=== PATIENT | male | born 1960 | race Caucasian/White ===

== ENCOUNTER → 2017-06-28 16:04 | Outpatient (CLI) | payer MEDICARE, SELFPAY ==
--- NOTE | 2017-06-28 16:09 | XR_ITS ---
XR knee LT 3V HISTORY: Knee pain ITS.REASON: LEFT LEG PAIN ORDERING PHYSICIAN: Koby Serrano MD PATIENT AGE: 56 years COMPARISON: FINDINGS: No fracture or dislocation. No lytic or blastic change. Normal mineralization. No significant arthritic changes evident. No other significant findings IMPRESSION: Negative Knee
== END ==
PROVIDERS: PCP Family Medicine; Visit Provider Family Medicine
DX: M79.605 Pain in left leg (principal)
CPT/HCPCS: 73562

== ENCOUNTER → 2017-07-27 09:25 | Outpatient (POV) | payer MEDICARE, SELFPAY | PROVIDERS: PCP Family Medicine; Visit Provider Otolaryngology | DX: Z00.00 Encounter for general adult medical examination without abnormal findings (principal) ==

== ENCOUNTER 2018-01-23 16:31 | Inpatient (IN) ==
--- NOTE | 2018-01-23 18:06 | Emergency Department Note ---
ED Disposition Clinical Impression: Left leg pain, Elevated d-dimer Disposition: Still a Patient Condition on Discharge: Fair - Critical Care Critical Care Time: No Attestation: On 01/23/18, the high probability of a clinically significant, sudden or life threatening deterioration of the following system(s) required my full and direct attention, intervention and personal management. The time I documented below is in addition to time spent performing reported procedures but includes the following listed in this critical care notation. Medical Decision Making - Yo Inquiry Pt receiving controlled substance: Yes Yo was queried for this patient: No Reason not queried -: Emergent pt cond-no time Risks and benefits of using a controlled substance: were not discussed with pt by me Vital Signs: 01/23/18 16:32 01/23/18 17:02 Temperature 98.9 F Temperature Source Oral Pulse Rate [Right Brachial] 71 74 Respiratory Rate 18 20 Blood Pressure [Right Arm] 119/61 122/74 Blood Pressure Mean [Right Arm] 80 90 Blood Pressure Source [Right Arm] Automatic Cuff Automatic Cuff Blood Pressure Position [Right Arm] Supine Sitting 02 Sat by Pulse Oximetry 95 97 Oxygen Delivery Method Room Air Room Air - Lab Data Lab Results 01/23/18 18:00: WBC 17.0 H, RBC 4.54 L, Hgb 15.6, Hct 47.4, MCV 104.4 H, MCH 34.4 H, MCHC 32.9, RDW 13.0, Plt Count 288, MPV 7.3 L, Neut % (Auto) 75.4, Lymph % (Auto) 12.3, [place] % (Auto) 11.7 H, Eos % (Auto) 0.4, Baso % (Auto) 0.1, Neut # (Auto) 12.8 H, Lymph # (Auto) 2.1, [place] # (Auto) 2.0 H, Eos # (Auto) 0.1, Baso # (Auto) 0.0, Total Counted 100, Neutrophils % (Manual) 82 H, Lymphocytes % (Manual) 8 L, Monocytes % (Manual) 9, Metamyelocytes % 1.0, Platelet Estimate Normal, Macrocytosis 1+ 01/23/18 18:00: Sodium 132 L, Potassium 3.9, Chloride 96 L, Carbon Dioxide 31, Anion Gap 8.9, BUN 28 H, Creatinine 1.26, Estimated Creat Clear 79, Estimated GFR 59, Est GFR ( Amer) 72, Glucose 90, Calcium 8.5, Total Bilirubin 1.0, AST 40 H, ALT 23, Alkaline Phosphatase 100, Total Protein 7.7, Albumin 2.9 L, Globulin 4.8 H, Albumin/Globulin Ratio 0.6 L 01/23/18 18:00: B-Natriuretic Peptide 90 01/23/18 18:00: D-Dimer 3830 H* Result diagrams: 01/23/18 18:00 01/23/18 18:00 Orders (Tests/Meds): ED MEDICATIONS Generic Name Dose Route Start Last Admin Trade Name Freq PRN Reason Stop Dose Admin Enoxaparin Sodium 90 mg 01/23/18 19:30 01/23/18 19:55 Lovenox 100mg/Ml Syringe SQ 02/22/18 19:29 90 mg Q12H ZAN Administration Discontinued Medications Generic Name Dose Route Start Last Admin Trade Name Freq PRN Reason Stop Dose Admin Hydromorphone HCl 2 mg 01/23/18 18:18 01/23/18 18:40 Dilaudid 2mg/Ml Syringe IM 01/23/18 18:19 2 mg ONCE ONE Administration Promethazine HCl 25 mg 01/23/18 18:18 01/23/18 18:40 Phenergan 25mg/Ml 1ml Vial IM 01/23/18 18:19 25 mg ONCE ONE Administration Sodium Chloride 25 ml 01/23/18 18:18 01/23/18 18:40 Sod Chlor 0.9% 25ml Bag IV 01/23/18 18:19 Not Given ONCE ONE - Physician Consults Physician Consulted: sarita Time: 20:00 Reason -: Admission Comment/Response: States the patient's previous femoral blood clot was an arterial clot. Agrees to admit the patient to the hospital. We discussed the patient's clinical information, including history, exam, laboratory and radiology results and ED course. Per hospital procedure, I will write temporary bridge inpatient orders on the patient. Specific orders requested by the admitt ing physician: Lovenox. Doppler in the morning. Pain medication. Medical Decision Narrative: 6:20 PM: Discussed workup and treatment with patient. I recommended evaluation for DVT given his initial complaint of popliteal and calf pain. This is when he starts telling me that his pain is more anterior and medial. He does however consent to workup for DVT, although he says "I would just assume get a shot and get out of here". He declines an IV. General Adult HPI - General Chief complaint: PAIN Stated complaint: knee pain Time Seen by Provider: 01/23/18 18:06 Mode of Arrival: EMS Limitations: No Limitations Description of Symptoms (Recalled from ER Triage Doc. by RN): pt states that he has seen his weather anchor 2 times in the last 2 weeks for increased lymphedema in his left leg. states he has had similar issues since he was 18 yrs old. states that since sunday 01/21 (his last md visit) the pressure has been increasing, states that he has not been able to really ambulate other than to the restroom. - History of Present Illness HPI narrative: Arrives by ambulance complaining of left knee pain. The patient is an inconsis tent historian. States he has chronic lymphedema of his left leg since he was 12 years old and chronic pain, but has more severe pain for the past 10 days. No injury. Initially told me that the pain was mostly in the back of his knee and down his calf, but then later says it is also across the front of his knee and then changes his story, stating that the most intense pain is medial knee. He has a history of recurrent cellulitis of his leg, but says this is not cellulitis. No erythema or heat. States he has a prior history of a femoral blood clot several years ago. He is not currently on blood thinners. He says that he describes the pain as a pressure. He says when he told his primary care doctor about this his primary care doctor told him it must be fluid in his knee and that he should have it drained. The patient says he did not want that done. He said he saw his physician twice for this. About a week ago he was put on steroids. He did not improve. He saw his physician on Wednesday 2 days ago and was put on nonsteroidal anti-inflammatories and he says that has not helped either. He normally does not use a walker, but used a walker today and was able to ambulate with that. - Related Data Home Medications Medication Instructions Recorded Confirmed Aspirin [Aspirin 325mg Tab] 325 mg PO DAILY 07/31/17 07/31/17 Furosemide [Furosemide 40MG tAB] 40 mg PO DAILY 07/31/17 07/31/17 Lisinopril [Lisinopril 20mg Tab] 20 mg PO DAILY 07/31/17 07/31/17 Loratadine [Claritin 10mg Tablet] 10 mg PO DAILY 07/31/17 07/31/17 Metoprolol Succinate [Toprol Xl] 100 mg PO DAILY 07/31/17 07/31/17 Potassium Chloride [Pot Chlor 10 10 meq PO BID 07/31/17 07/31/17 mEq Tab] Previous Rx's Medication Instructions Recorded Sulfamethoxazole/Trimethoprim 1 each PO BID #20 tab 07/31/17 [Bactrim DS tablet] cephALEXin [Keflex 500mg Cap] 500 mg PO QID #40 cap 07/31/17 Allergies Allergy/AdvReac Type Severity Reaction Status Date / Time No Known Allergies Allergy Verified 07/31/17 15:33 [facility] History I have reviewed the patient's past medical history: Yes - Social History Educational Level: Completed High School Smoking Status: Current every day smoker Tobacco Type: cigarettes Alcohol Intake: never - Psychiatric History Expresses thoughts of harming self/others: None Suicide Plan Description: No Plan ROS Obtained: Yes Systems reviewed as appropriate & no additional complaints - Constitutional Constitutional: Denies fever(s) - Cardiovascular Cardiovascular: Denies chest pain - Respiratory Respiratory: No dyspnea - Musculoskeletal Musculoskeletal: Reports joint pain (Left knee) - Neurologic Neurologic: Denies numbness, Denies weakness Physical Exam - General General appearance: alert Comment: No apparent distress during my interview and exam, but occasionally moaning when I am not in the room. - Chest Chest inspection: Present: normal inspection, symmetric chest wall rise - Respiratory Respiratory exam: Absent: respiratory distress - Cardiovascular Cardiovascular exam: Present: regular rate, normal rhythm - Expanded Lower Extremity Exam Left Comment: Diffuse edema left lower extremity. The patient has a compression stocking on. I pulled down his compressions stocking to expose his knee and calf. His left knee shows no erythema. No definite effusion. Some generalized tenderness of the knee. No heat. Good range of motion. Some mild tenderness of his calf without cords. Moderate to large edema of his left foot which she says is chronic. Normal warmth, color, capillary refill of the foot. Normal sensation and movement. Posterior tibialis and dorsalis pedis pulses both present by Doppler. Doppler used due to large amount of edema. - Neurological Exam Neurological exam: Present: alert, oriented X3. Absent: motor sensory deficit - Psychiatric Psychiatric exam: Present: normal affect - Skin Skin exam: Present: warm, dry
[2018-01-23 18:14] LABS: Basophils % 0.1 % (0.1-2.0); Eosinophils # 0.1 K/mm3 (0.0-0.4); Eosinophils % 0.4 % (0.1-12.0); Hematocrit 47.4 % (42.0-52.0); Hemoglobin 15.6 g/dL (14.1-18.0); Lymphocytes # 2.1 K/mm3 (0.7-4.5); Lymphocytes % 12.3 % (10-50); Mean Corpuscular HGB Conc 32.9 g/dL (31.8-35.4); Mean Corpuscular Hemoglobin 34.4 pg (27.0-31.2); Mean Corpuscular Volume 104.4 fl (80-94); Mean Platelet Volume 7.3 fl (7.4-10.4); Monocytes % 11.7 % (1.7-9.3); Neutrophils # 12.8 K/mm3 (1.8-7.8); Neutrophils % 75.4 % (37.0-80.0); Platelet Count 288 K/mm3 (142-424); Red Blood Count 4.54 M/mm3 (4.60-6.20)
[2018-01-23 18:26] LABS: Albumin Level 2.9 gm/dL (3.4-5.0); Albumin/Globulin Ratio 0.6 (1.1-1.8); Anion Gap 8.9 mEq/L (5-15); Calcium 8.5 mg/dL (8.5-10.1); Globulin 4.8 gm/dl (1.3-3.2); Potassium 3.9 mmoL/L (3.5-5.1); Total Protein,Serum 7.7 gm/dL (6.4-8.2)
[2018-01-23 19:43] LABS: Lymphocytes % 8 % (10-50); Macrocytosis 1+; Monocytes % 9 % (2-9); Neutrophils % 82 % (42-76); Total Cells Counted 100
--- NOTE | 2018-01-24 07:54 | Pharmacy Consult Notes ---
[facility] Pharmacy VTE Monitoring - Patient Demographics Admission date: 01/23/18 Report Date: 01/24/18 Time: 07:54 Allergies/Adverse Reactions: Patient Allergies No Known Allergies Allergy (Verified 07/31/17 15:33) Height: 1.68 m Weight: 85.729 kg Patient Problems: Current Active Problems Left leg pain (Acute) Elevated d-dimer (Acute) - VTE Risk Labs: VTE Related Lab Results Hgb 15.6 g/dL (14.1-18.0) 01/23/18 18:00 Hct 47.4 % (42.0-52.0) 01/23/18 18:00 Plt Count 288 K/mm3 (142-424) 01/23/18 18:00 BUN 28 mg/dL (7-18) H 01/23/18 18:00 Creatinine 1.26 mg/dL (0.70-1.30) 01/23/18 18:00 Estimated Creat Clear 79 mL/min (50-200) 01/23/18 18:00 VTE Score: 4 VTE Risk Level: Low Risk - Prophylaxis VTE Prophylaxis Ordered?: Yes Types of VTE Prophylaxis: TEDS Knee High, Pharmacological Location of Applied Device: Bilateral Lower Extremeties Pharmacologic Type: Enoxaparin - VTE Diagnosis Confirmed Treatment or plan recommended: Continue Current Treatment
--- NOTE | 2018-01-24 08:21 | Non-Invasive Vascular Report ---
"Venous Exam Indications: 729.5 Pain in limb. Pt has chronic lymphedema(43 yrs). IMPRESSIONS 1. There is no evidence of significant Reflux. 2. No evidence of deep or superficial vein thrombosis involving the left lower extremity Left lower extremity venous duplex evaluation. Doppler flow study including spectral analysis, color and rojas scale imaging. Location: Vascular laboratory. Patient status: Inpatient. Tables: Venous flow and imaging: + +-------+ + + |Location |Overall|Flow properties |Comments | + +-------+ + + |Left common femoral |Patent |Normal phasicity; | | | | |spontaneous; normal | | | | |augmentation; | | | | |compressible | | + +-------+ + + |Left saphenofemoral |Patent |Compressible | | |junction | | | | + +-------+ + + |Left profunda femoral |Patent |Compressible | | + +-------+ + + |Left femoral |Patent |Normal phasicity; | | | | |spontaneous; normal | | | | |augmentation; | | | | |compressible | | + +-------+ + + |Left greater saphenous|Patent |Normal phasicity; | | | | |spontaneous; normal | | | | |augmentation; | | | | |compressible | | + +-------+ + + |Left popliteal |Patent |Normal phasicity; | | | | |spontaneous; normal | | | | |augmentation; | | | | |compressible | | + +-------+ + + |Left posterior tibial |Patent |Compressible | | + +-------+ + + |Left peroneal |Patent |Compressible |difficult to image| + +-------+ + + |Left gastrocnemius |Patent |Compressible | | + +-------+ + + |Left soleal |Patent |Compressible | | + +-------+ + + (Report amended ) Electronically signed by: Jesse Hidalgo [id number]"
--- NOTE | 2018-01-24 12:22 | Consult Report ---
*Admission Date: 01/23/18 *Chief complaint: left knee pain *History of present illness: 57yo M with chief complaint of acute on chronic left knee pain. He started having pain this summer, but denies any injury or traumatic event. Pain has been intermittent and increasing in severity until yesterday, when he could barely walk on it. He has a remote history of surgery on that knee when he was 18 years old, for what appears to have been septic arthritis. He reports a history of multiple infections, but it's unclear if these were intra-articular, or how they were treated. He denies history of further surgery on that knee nor the use of suppressive antibiotics. He developed lymphedema in that extremity, which has been attributed to the surgery when he was 18. 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 Denies current use of anticoagulants. There is a history of illicit drug use, but the patient denies any current use. He is a 1ppd smoker. 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 He reports no significant knee pain until this summer, and denies unusual swelling or redness at home. No history of fevers, no drainage from the knee. Admitted with elevated d-dimers, leukocytosis, and ultrasound that was negative for DVT. Review of Systems - Constitutional Denies chills, Denies fever(s), Denies night sweats - *Cardiovascular Denies chest pain - *Respiratory Denies shortness of breath - *Gastrointestinal Denies abdominal pain - *Genitourinary Denies difficulty urinating - *Musculoskeletal Reports joint pain Comments: left knee pain - *Neurologic Denies numbness, Denies weakness - Hematologic/Lymphatic Comments: h/o LLE lymphedema [facility] History I have reviewed the patient's past medical history: Yes Medical History: Denies:: Cancer, Diabetes Mellitus Type 1, Diabetes Mellitus Type 2, MRSA Comment: LLE lymphedema Laterality Cases: Left: Other (L knee I&D for septic arthritis age 18) Amputation: No - *Social History Educational Level: Completed High School Smoking Status: Current every day smoker Tobacco Type: cigarettes # Packs/Day (cigarettes): 1 Alcohol Intake: never Occupational Status: employed, disabled Housing: house Household Members: none - Psychiatric History Expresses thoughts of harming self/others: None Suicide Plan Description: No Plan *Family Hx:: No significant family history Meds Home Medications Medication Instructions Recorded Confirmed Type Potassium Chloride [Pot Chlor 10 10 meq PO BID 07/31/17 01/23/18 History mEq Tab] RX: Furosemide [Furosemide 40MG 40 mg PO DAILY 07/31/17 01/23/18 History tAB] RX: Lisinopril [Lisinopril 20mg 20 mg PO DAILY 07/31/17 01/23/18 History Tab] RX: Loratadine [Claritin 10mg 10 mg PO DAILY 07/31/17 01/23/18 History Tablet] Lisinopril/Hydrochlorothiazide 1 tab PO DAILY 01/23/18 01/23/18 History [Zestoretic 20-12.5 mg Tablet] Aspirin [Aspirin 81mg chewable 81 mg PO DAILY 01/24/18 01/24/18 History tab] Nabumetone 1,500 mg PO DAILY 01/24/18 01/24/18 History RX: Fluticasone/Salmeterol [Advair 1 puff INHALATION BID 01/24/18 01/24/18 History 100/50mcg diskus] RX: Metoprolol Succinate 100 mg PO DAILY 01/24/18 01/24/18 History Allergies Allergy/AdvReac Type Severity Reaction Status Date / Time No Known Allergies Allergy Verified 07/31/17 15:33 Exam Vital signs and Labs for Last 24 Hours: Temp Pulse Resp BP Pulse Ox 97.7 F 65 18 104/61 L 97 01/24/18 08:00 01/24/18 08:00 01/24/18 08:00 01/24/18 08:00 01/24/18 08:00 Laboratory Results - last 24 hr 01/23/18 18:00: WBC 17.0 H, RBC 4.54 L, Hgb 15.6, Hct 47.4, MCV 104.4 H, MCH 34.4 H, MCHC 32.9, RDW 13.0, Plt Count 288, MPV 7.3 L, Neut % (Auto) 75.4, Lymph % (Auto) 12.3, [place] % (Auto) 11.7 H, Eos % (Auto) 0.4, Baso % (Auto) 0.1, Neut # (Auto) 12.8 H, Lymph # (Auto) 2.1, [place] # (Auto) 2.0 H, Eos # (Auto) 0.1, Baso # (Auto) 0.0, Total Counted 100, Neutrophils % (Manual) 82 H, Lymphocytes % (Manual) 8 L, Monocytes % (Manual) 9, Metamyelocytes % 1.0, Platelet Estimate Normal, Macrocytosis 1+ 01/23/18 18:00: Sodium 132 L, Potassium 3.9, Chloride 96 L, Carbon Dioxide 31, Anion Gap 8.9, BUN 28 H, Creatinine 1.26, Estimated Creat Clear 79, Estimated GFR 59, Est GFR ( Amer) 72, Glucose 90, Calcium 8.5, Total Bilirubin 1.0, AST 40 H, ALT 23, Alkaline Phosphatase 100, Total Protein 7.7, Albumin 2.9 L, Globulin 4.8 H, Albumin/Globulin Ratio 0.6 L 01/23/18 18:00: B-Natriuretic Peptide 90 01/23/18 18:00: D-Dimer 3830 H* I & O for Last 24 hours: Intake & Output 01/22/18 01/23/18 01/24/18 01/25/18 11:59 11:59 11:59 11:59 Intake Total 400 / 400 Output Total 220 / 220 Balance 180 / 180 Weight 189 lb - Constitutional no acute distress - *Routine Respiratory Exam Present: CTA bilaterally. Absent: accessory muscle use - *Routine Cardiovascular Exam Present: RRR - *Routine Abdominal Exam Present: soft. Absent: tenderness - *Routine Extremities Exam Comments: LLE with mild lymphedema patient has difficulty lifting L leg on his own able to perform active and passive ROM L knee with minimal pain +ttp medial joint line small intra-articular effusion surgical scars x2; anteromedial and anterolateral knee, well-healed no erythema of knee, but slightly warm negative anterior/posterior drawer L knee stable to varus/valgus stress mild calf tenderness +DF/PF/EHL - *Routine Skin Exam Present: intact, scars. Absent: erythema - *Routine Neurological Exam Present: alert, oriented X3, moving all extremities, normal tone. Absent: sensory deficit, motor deficit Results - Labs Result Diagrams: 01/23/18 18:00 01/23/18 18:00 Labs: Abnormal lab results 01/23/18 01/23/18 01/23/18 Range/Units 18:00 18:00 18:00 WBC 17.0 H (4.8-10.8) K/mm3 RBC 4.54 L (4.60-6.20) M/mm3 MCV 104.4 H (80-94) fl MCH 34.4 H (27.0-31.2) pg MPV 7.3 L (7.4-10.4) fl [place] % (Auto) 11.7 H (1.7-9.3) % Neut # (Auto) 12.8 H (1.8-7.8) K/mm3 [place] # (Auto) 2.0 H (0.1-1.0) K/mm3 Neutrophils % (Manual) 82 H (42-76) % Lymphocytes % (Manual) 8 L (10-50) % D-Dimer 3830 H* (0-400) ng/mL Sodium 132 L (136-145) mmol/L Chloride 96 L (98-107) mmol/L BUN 28 H (7-18) mg/dL AST 40 H (15-37) U/L Albumin 2.9 L (3.4-5.0) gm/dL Globulin 4.8 H (1.3-3.2) gm/dl Albumin/Globulin Ratio 0.6 L (1.1-1.8) H & H 01/23/18 Range/Units 18:00 Hgb 15.6 (14.1-18.0) g/dL Hct 47.4 (42.0-52.0) % All other labs normal. - Diagnostic results Knee x-ray: report reviewed (mild degenerative changes, small suprapatllar effusion), image reviewed Assessment and Plan (1) Left knee pain Current visit: Yes Status: Acute Category: Medical Code(s): M25.562 - Pain in left knee - Assessment and plan all Dx Assessment and Plan for all problems:: 57yo M with acute on chronic L knee pain -- did not initially suspect septic arthritis based on exam; no erythema, patient moving the knee, but he has significant leukocytosis and elevated d-dim er, with new onset pain/swelling --> planned to perform intra-articular corticosteroid injection, but aspirated the knee first to inspect joint fluid -- superolateral L knee was prepped with chlorhexidine and tract anesthetized with 3cc 1% lidocaine; 18G needle used to aspirate ~10cc fluid from L knee. fluid was frankly purulent, dark yellow/brown. sent to lab for stat fluid studies. -- patient made NPO in anticipation of surgical washout later today.
--- NOTE | 2018-01-24 13:41 | History & Physical Report ---
*Admission Date: 01/23/18 <Pao Juarezhy 01/24/18 13:53> *Chief complaint: Left knee pain <JuarezPaoLashon 01/24/18 13:53> *History of present illness: Mr. Soto is a 57-year-old male with a history of hypertension and left leg lymphedema who presented to [facility] yesterday with worsening left knee pain. He states for the last 2 days he has been able to walk and bear weight on that knee He has had no previous injuries and activity has been as usual. The emergency room with evaluation he was given Dilaudid and, Phenergan, and started on Lovenox. D-dimer was noted to be 3830 and white blood cell count was elevated at 17,000. Venous Doppler studies of the left leg were completed early this a.m. and was negative for SVT and DVT. Patient states that he still really hurts. He has required as needed pain medicine. <LarryLashon 01/24/18 13:53> [facility] History Medical History: Denies:: Anxiety, Cancer, Chronic Obstructive Pulmonary Disease (COPD), Diabetes Mellitus Type 1, Diabetes Mellitus Type 2, MRSA <Lashon Juarez 01/24/18 13:53> Comment: Left leg lymphedema <Lashon Juarez 01/24/18 13:53> Amputation: No <Lashon Juarez 01/24/18 13:53> - *Social History Educational Level: Completed High School <Lashon Juarez 01/24/18 13:53> Smoking Status: Current every day smoker <Lashon Juarez 01/24/18 13:53> Tobacco Type: cigarettes <Lashon Juarez 01/24/18 13:53> # Packs/Day (cigarettes): 1 <Lashon Juarez 01/24/18 13:53> Alcohol Intake: never <Lashon Juarez 01/24/18 13:53> Occupational Status: employed <Lashon Juarez 01/24/18 13:53> Housing: house <Lashon Juarez 01/24/18 13:53> Household Members: none <Lashon Juarez 01/24/18 13:53> - Psychiatric History Expresses thoughts of harming self/others: None <Lashon Juarez 01/24/18 13:53> Suicide Plan Description: No Plan <Lashon Juarez Massimo 01/24/18 13:53> *Family Hx:: No significant family history <Lashon Juarez Massimo 01/24/18 13:53> Review of Systems - Constitutional Denies fever(s), Denies headache(s) <Juarez,Lashon 01/24/18 13:53> - ENT Denies ear pain, Denies sore throat <Juarez,Lashon Massimo 01/24/18 13:53> - *Cardiovascular Denies chest pain, Denies shortness of breath <Juarez,Lashon - 01/24/18 13:53> - *Respiratory Denies chest congestion, Denies cough, Denies shortness of breath <Juarez,Lashon 01/24/18 13:53> - *Gastrointestinal Denies change in bowel habits, Denies loose stools, Denies nausea, Denies vomiting <Lashon Juarez 01/24/18 13:53> Comments: Hiccups <JuarezLashon 01/24/18 13:53> - *Genitourinary Denies difficulty urinating <JuarezLashon 01/24/18 13:53> - *Musculoskeletal Reports joint pain (Left knee; unable to walk) <Lashon Juarez 01/24/18 13:53> - *Neurologic Denies numbness, Denies weakness <Juarez,Lashon 01/24/18 13:53> Meds Home Medications Medication Instructions Recorded Confirmed Type Potassium Chloride [Pot Chlor 10 10 meq PO BID 07/31/17 01/23/18 History mEq Tab] RX: Furosemide [Furosemide 40MG 40 mg PO DAILY 07/31/17 01/23/18 History tAB] RX: Lisinopril [Lisinopril 20mg 20 mg PO DAILY 07/31/17 01/23/18 History Tab] RX: Loratadine [Claritin 10mg 10 mg PO DAILY 07/31/17 01/23/18 History Tablet] Lisinopril/Hydrochlorothiazide 1 tab PO DAILY 01/23/18 01/23/18 History [Zestoretic 20-12.5 mg Tablet] Aspirin [Aspirin 81mg chewable 81 mg PO DAILY 01/24/18 01/24/18 History tab] Nabumetone 1,500 mg PO DAILY 01/24/18 01/24/18 History RX: Fluticasone/Salmeterol [Advair 1 puff INHALATION BID 01/24/18 01/24/18 History 100/50mcg diskus] RX: Metoprolol Succinate 100 mg PO DAILY 01/24/18 01/24/18 History <Koby Serrano - 01/24/18 17:30> Allergies Allergy/AdvReac Type Severity Reaction Status Date / Time No Known Allergies Allergy Verified 07/31/17 15:33 <Koby Serrano - 01/24/18 17:30> Exam Vital signs and Labs for Last 24 Hours: Temp Pulse Resp BP Pulse Ox 98.2 F 80 18 103/55 L 92 L 01/24/18 15:38 01/24/18 15:38 01/24/18 15:38 01/24/18 15:38 01/24/18 15:38 Laboratory Results - last 24 hr 01/23/18 18:00: WBC 17.0 H, RBC 4.54 L, Hgb 15.6, Hct 47.4, MCV 104.4 H, MCH 34.4 H, MCHC 32.9, RDW 13.0, Plt Count 288, MPV 7.3 L, Neut % (Auto) 75.4, Lymph % (Auto) 12.3, [place] % (Auto) 11.7 H, Eos % (Auto) 0.4, Baso % (Auto) 0.1, Neut # (Auto) 12.8 H, Lymph # (Auto) 2.1, [place] # (Auto) 2.0 H, Eos # (Auto) 0.1, Baso # (Auto) 0.0, Total Counted 100, Neutrophils % (Manual) 82 H, Lymphocytes % (Manual) 8 L, Monocytes % (Manual) 9, Metamyelocytes % 1.0, Platelet Estimate Normal, Macrocytosis 1+ 01/23/18 18:00: Sodium 132 L, Potassium 3.9, Chloride 96 L, Carbon Dioxide 31, Anion Gap 8.9, BUN 28 H, Creatinine 1.26, Estimated Creat Clear 79, Estimated GFR 59, Est GFR ( Amer) 72, Glucose 90, Calcium 8.5, Total Bilirubin 1.0, AST 40 H, ALT 23, Alkaline Phosphatase 100, Total Protein 7.7, Albumin 2.9 L, Globulin 4.8 H, Albumin/Globulin Ratio 0.6 L 01/23/18 18:00: B-Natriuretic Peptide 90 01/23/18 18:00: D-Dimer 3830 H* 01/24/18 15:00: ESR 38 H 01/24/18 15:00: C-Reactive Protein 15.5 H <Koby Serrano - 01/24/18 17:30> Temp Pulse Resp BP Pulse Ox 97.7 F 65 18 104/61 L 97 01/24/18 08:00 01/24/18 08:00 01/24/18 08:00 01/24/18 08:00 01/24/18 08:00 Laboratory Results - last 24 hr 01/23/18 18:00: WBC 17.0 H, RBC 4.54 L, Hgb 15.6, Hct 47.4, MCV 104.4 H, MCH 34.4 H, MCHC 32.9, RDW 13.0, Plt Count 288, MPV 7.3 L, Neut % (Auto) 75.4, Lymph % (Auto) 12.3, [place] % (Auto) 11.7 H, Eos % (Auto) 0.4, Baso % (Auto) 0.1, Neut # (Auto) 12.8 H, Lymph # (Auto) 2.1, [place] # (Auto) 2.0 H, Eos # (Auto) 0.1, Baso # (Auto) 0.0, Total Counted 100, Neutrophils % (Manual) 82 H, Lymphocytes % (Manual) 8 L, Monocytes % (Manual) 9, Metamyelocytes % 1.0, Platelet Estimate Normal, Macrocytosis 1+ 01/23/18 18:00: Sodium 132 L, Potassium 3.9, Chloride 96 L, Carbon Dioxide 31, Anion Gap 8.9, BUN 28 H, Creatinine 1.26, Estimated Creat Clear 79, Estimated GFR 59, Est GFR ( Amer) 72, Glucose 90, Calcium 8.5, Total Bilirubin 1.0, AST 40 H, ALT 23, Alkaline Phosphatase 100, Total Protein 7.7, Albumin 2.9 L, Globulin 4.8 H, Albumin/Globulin Ratio 0.6 L 01/23/18 18:00: B-Natriuretic Peptide 90 01/23/18 18:00: D-Dimer 3830 H* <JuarezPaoLashon - 01/24/18 13:53> I & O for Last 24 hours: Intake & Output 01/22/18 01/23/18 01/24/18 01/25/18 11:59 11:59 11:59 11:59 Intake Total 400 / 400 240 / 240 Output Total 220 / 220 600 / 600 Balance 180 / 180 -360 / -360 Weight 189 lb 189 lb <Koby Serrano - 01/24/18 17:30> Intake & Output 01/22/18 01/23/18 01/24/18 01/25/18 11:59 11:59 11:59 11:59 Intake Total 400 / 400 240 / 240 Output Total 220 / 220 450 / 450 Balance 180 / 180 -210 / -210 Weight 189 lb <Lashon Juarez - 01/24/18 13:53> Microbiology Reports for the Last 24 Hours: Microbiology 01/24/18 13:10 Synovial Fluid - Left Gram Stain - Final <Koby Serrano - 01/24/18 17:30> Radiology Reports for the Last 24 Hours: 01/24/2018 left leg venous Doppler study 1. There is no evidence of significant Reflux. 2. No evidence of deep or superficial vein thrombosis involving the left lower extremity Left lower extremity venous duplex evaluation. Doppler flow study including spectral analysis, color and rojas scale imaging. Location: 01/24/2018 left knee x-ray IMPRESSION: Small suprapatellar effusion otherwise negative left knee <Lashon Juarez - 01/24/18 13:53> - Constitutional no acute distress <Lashon Juarez - 01/24/18 13:53> - *Routine HEENT Exam Head: Present: normocephalic, atraumatic <Lashon Juarez - 01/24/18 13:53> Eye: Present: PERRL. Absent: conjunctival icterus, scleral injection <Lashon Kerr nd - 01/24/18 13:53> ENT: Present: mucous membranes moist, oropharynx clear <Lashon Juarez 01/24/18 13:53> - *Routine Neck Exam Present: supple. Absent: carotid bruit, lymphadenopathy, thyromegaly <Lashon Juarez 01/24/18 13:53> - *Routine Respiratory Exam Present: CTA bilaterally (Anteriorly and posteriorly) <Lashon Juarez 01/24/18 13:53> - *Routine Cardiovascular Exam Present: RRR <Lashon Juarez 01/24/18 13:53> - *Routine Abdominal Exam Present: soft, normoactive bowel sounds. Absent: tenderness <Lashon Juarez 01/24/18 13:53> - *Routine Extremities Exam Present: edema (Left leg and around the left knee), tenderness (Left knee). Absent: full ROM (Cannot flex at the knee or lift the left leg) <Lashon Juarez 01/24/18 13:53> - *Routine Neurological Exam Present: alert, oriented X3 <Lashon Juarez 01/24/18 13:53> Assessment and Plan (1) Left knee pain Current visit: Yes Status: Acute Category: Medical Code(s): M25.562 - Pain in left knee (2) Elevated d-dimer Current visit: Yes Status: Acute Category: Medical Code(s): R79.89 - Other specified abnormal findings of blood chemistry (3) Hypertension Current visit: Yes Status: Chronic Category: Medical Code(s): I10 - Essential (primary) hypertension (4) Lymphedema of left leg Current visit: Yes Status: Chronic Category: Medical Code(s): I89.0 - Lymphedema, not elsewhere classified <Koby Serrano 01/24/18 17:30> (1) Left knee pain Current visit: Yes Status: Acute Category: Medical Code(s): M25.562 - Pain in left knee (2) Knee effusion, left Current visit: Yes Status: Acute Category: Medical Code(s): M25.462 - Effusion, left knee (3) Lymphedema of left leg Current visit: Yes Status: Chronic Category: Medical Code(s): I89.0 - Lymphedema, not elsewhere classified (4) Hypertension Current visit: Yes Status: Chronic Category: Medical Code(s): I10 - Essential (primary) hypertension <Lashon Juarez 01/24/18 13:54> - Assessment and plan all Dx Assessment and Plan for all problems:: Saw patient agree with above note, case discussed with Ortho. <Kboy Serrano - 01/24/18 17:30> At the time of this report patient has been seen by Ortho. She aspirated purulent fluid from the knee. Surgery is planned for later on today. <Lashon Juarez - 01/24/18 13:59>
--- NOTE | 2018-01-24 15:01 | Pharmacy Consult Notes ---
- Pharmacy Consult Date: 01/24/18 Time: 14:59 Referring provider: DR. VERAS Reason for Consult:: VANCOMYCIN DOSING Allergies and ADEs:: Allergies Allergy/AdvReac Type Severity Reaction Status Date / Time No Known Allergies Allergy Verified 07/31/17 15:33 Home Medications:: Home Medications Medication Instructions Recorded Confirmed Type Furosemide [Furosemide 40MG tAB] 40 mg PO DAILY 07/31/17 01/23/18 History Lisinopril [Lisinopril 20mg Tab] 20 mg PO DAILY 07/31/17 01/23/18 History Loratadine [Claritin 10mg Tablet] 10 mg PO DAILY 07/31/17 01/23/18 History Potassium Chloride [Pot Chlor 10 10 meq PO BID 07/31/17 01/23/18 History mEq Tab] Lisinopril/Hydrochlorothiazide 1 tab PO DAILY 01/23/18 01/23/18 History [Zestoretic 20-12.5 mg Tablet] Aspirin [Aspirin 81mg chewable 81 mg PO DAILY 01/24/18 01/24/18 History tab] Fluticasone/Salmeterol [Advair 1 puff INHALATION BID 01/24/18 01/24/18 History 100/50mcg diskus] Metoprolol Succinate 100 mg PO DAILY 01/24/18 01/24/18 History Nabumetone 1,500 mg PO DAILY 01/24/18 01/24/18 History Height: 1.68 m Weight: 85.729 kg Laboratory Results:: Laboratory Results - last 24 hr 01/23/18 18:00: WBC 17.0 H, RBC 4.54 L, Hgb 15.6, Hct 47.4, MCV 104.4 H, MCH 34.4 H, MCHC 32.9, RDW 13.0, Plt Count 288, MPV 7.3 L, Neut % (Auto) 75.4, Lymph % (Auto) 12.3, [place] % (Auto) 11.7 H, Eos % (Auto) 0.4, Baso % (Auto) 0.1, Neut # (Auto) 12.8 H, Lymph # (Auto) 2.1, [place] # (Auto) 2.0 H, Eos # (Auto) 0.1, Baso # (Auto) 0.0, Total Counted 100, Neutrophils % (Manual) 82 H, Lymphocytes % (Manual) 8 L, Monocytes % (Manual) 9, Metamyelocytes % 1.0, Platelet Estimate Normal, Macrocytosis 1+ 01/23/18 18:00: Sodium 132 L, Potassium 3.9, Chloride 96 L, Carbon Dioxide 31, Anion Gap 8.9, BUN 28 H, Creatinine 1.26, Estimated Creat Clear 79, Estimated GFR 59, Est GFR ( Amer) 72, Glucose 90, Calcium 8.5, Total Bilirubin 1.0, AST 40 H, ALT 23, Alkaline Phosphatase 100, Total Protein 7.7, Albumin 2.9 L, Globulin 4.8 H, Albumin/Globulin Ratio 0.6 L 01/23/18 18:00: B-Natriuretic Peptide 90 01/23/18 18:00: D-Dimer 3830 H* Medical History: Denies:: Anxiety, Cancer, Chronic Obstructive Pulmonary Disease (COPD), Diabetes Mellitus Type 1, Diabetes Mellitus Type 2, MRSA Assessment and Plan (1) Left knee pain Current visit: Yes Status: Acute Category: Medical Code(s): M25.562 - Pain in left knee - Assessment and plan all Dx Assessment and Plan for all problems:: BASED ON PATIENT'S FACTORS, RECOMMEND STARTING WITH VANCOMYCIN 1750 MG Q18H AT THIS TIME. PHARMACY WILL FOLLOW DAILY AND ADJUST APPROPRIATE. PATTIE MUNOZ, ASHLEYD
--- NOTE | 2018-01-24 18:15 | Progress Note ---
[facility] Anesthesia Checklist - Structural Data Admitted From: Inpatient Planned Operative Procedure/s: l knee arthroscopy Consent for Planned Operative Procedure(s) Verified: Yes - Airway Assessment C-Spine Mobility Assessed: Yes TMJ Mobility Assessed: Yes Dentition: Poor Dentition - Neurological Assessment Level of Consciousness: Awake, Alert, Appropriate - Anesthesia Plan Anesthesia Risk discussed: Yes Anesthesia Plan: Verified ASA Class: II Anesthesia Type: General [facility] History I have reviewed the patient's past medical history: Yes Medical History: Denies:: Anxiety, Cancer, Chronic Obstructive Pulmonary Disease (COPD), Diabetes Mellitus Type 1, Diabetes Mellitus Type 2, MRSA Laterality Cases: Left: Other (L knee I&D for septic arthritis age 18) Amputation: No - *Social History Educational Level: Completed High School Smoking Status: Current every day smoker Tobacco Type: cigarettes # Packs/Day (cigarettes): 1 Alcohol Intake: never Occupational Status: employed, disabled Housing: house Household Members: none - Psychiatric History Expresses thoughts of harming self/others: None Suicide Plan Description: No Plan Pschychiatric History:: Denies:: Anxiety *Family Hx:: No significant family history
--- NOTE | 2018-01-24 21:46 | Progress Note ---
[facility] Anesthesia Record Part I Intake, IV Amount: 400 Estimated blood loss (mL): 10 Urine output (mL): 30 Blood Products used (#): none Blood Pressure: 112/67 SaO2: 95 Pulse Rate: 84 Respiratory Rate: 20 Temperature: 97.7 F Patient is:: Drowsy, Stable Stable to PACU at:: 21:45
--- NOTE | 2018-01-24 21:48 | Progress Note ---
[facility] Anesthesia Record Part II Discharge Time: 21:55 Destination: Medical Surgical Department PACU nurse assessment reviewed?: Yes Patient Condition:: Good Anesthesia Complications:: None
--- NOTE | 2018-01-25 00:35 | Operative Note ---
Date of procedure: 01/24/18 Pre-op Diagnosis:: L knee septic arthritis Post-op Diagnosis:: SAME Procedure performed:: L knee arthroscopic irrigation Surgeon:: Jayleen Simental MD Websphere Developer(s):: Eva Xavier CST CARE SUPPORT REPRESENTATIVE:: Jayy Sharp Anesthesia: GETA Estimated blood loss (mL): 5 Clinical Note:: 57 year-old male with acute on chronic left knee pain. Remote history of open I&D of L knee at age 18 for infection. Reports history of multiple infections in the past, but unclear if this was intra-articular or of another body part. He recalls being treated at for possible necrotizing fasciitis, where he had a reaction to vancomycin that included pain and ulcerations in the mouth. He is currently refusing vancomycin this admission. He has chronic lymphedema in the LLE as well. Denies recent fevers, erythema of the knee, or drainage; he says it is always swollen. He has been able to bear weight on the LLE and perform AROM of the joint. Infection was not considered likely based on exam, but I aspirated the knee and found purulent fluid in the joint. Gram stain revealed >25 WBC per LPF and moderate GPC. Cultures are pending, and cell count with diff is a send- out lab. The decision was made to wash out the knee based on clinical findings, and risks, benefits and alternatives to the procedure were discussed with the patient. He was not agreeable to a large surgery, but was willing to have the knee arthroscopically irrigated. WBC and d-dimer were elevated pre-op but he remained afebrile. Operative findings:: The patient was identified in preoperative holding and the left knee signed by myself. He was taken to the OR and placed supine on the OR table. 2g ancef were infused and general anesthesia induced. Once he was under anesthesia, the L knee was positioned with a lateral post, the RLE was in a well-padded leg knott, and the bottom of the bed flexed so that the LLE was bent at 90 degrees. A tourniquet was not used on this case. The LLE was then prepped with chlorhexidine and draped in the usual sterile fashion. Timeout was then performed, identifying the correct patient, correct extremity and correct procedure. A standard anteromedial portal was established with an 11 blade. This was just lateral to his well-healed scar from his surgery at at 18. Once the skin was incised, there was immediate return of pus, which was cultured and sent for aerobic and anaerobic cultures. An arthroscopic cannula was placed through this incision and into the knee in the suprapatellar pouch. Next an outflow portal was establish superolaterally. Irrigation fluid was hooked up to the arthroscope sheath in the front of the knee, and suction was hooked up to the outflow portal. Through this system, 12L of normal saline with bacitrain was irrigated. The arthroscope was placed in the knee at one point, and extensive hypertrophic, erythematous synovitis was seen. After the knee was irrigated, no further pus was seen and the intra-articular tissues, though not optimal, did not look necrotic or grossly infected. 12L was used to irrigate the knee, and once the suction/outflow ran clear, all instruments were removed from the knee. The two small incisions were closed with 3-0 nylon in a horizontal matress fashion. The leg was cleansed with a wet lap and the incisions dressed with xeroform, 4x4, webril and MUNIRA wrap. The patient was then extubated and transferred to PACU in good condition. There was no intraoperative complication during this case. Operative note:: see operative findings Tourniquet time (min): 0 Condition: stable Disposition: floor Specimens:: aerobic and anaerobic cultures Complications:: none
--- NOTE | 2018-01-25 08:14 | Progress Note ---
<Lashon Juarez - Last Filed: 01/25/18 08:15> Internal Medicine - PN: Subj Interval history: Patient did have surgery last evening, left knee arthroscopic irrigation for a left knee septic arthritis per Dr. Jayleen iSmental. Patient feels he is doing better today. He has had less pain in the left knee. He has not tried to bend or lift the leg. He did sleep some. He ate breakfast without difficulty. He is voiding QS. Bowels have moved. He denies chest pain and shortness of breath and wheezing. Patient will to go home today. Exam Vital signs and Labs for Last 24 Hours: Temp Pulse Resp BP Pulse Ox 97.8 F 92 H 24 124/68 97 01/25/18 08:02 01/25/18 08:02 01/25/18 08:02 01/25/18 08:02 01/25/18 08:02 Laboratory Results - last 24 hr 01/24/18 15:00: ESR 38 H 01/24/18 15:00: C-Reactive Protein 15.5 H I & O for Last 24 hours: Intake & Output 01/22/18 01/23/18 01/24/18 01/25/18 11:59 11:59 11:59 11:59 Intake Total 400 / 400 1000 / 1000 Output Total 220 / 220 900 / 900 Balance 180 / 180 100 / 100 Weight 189 lb 189 lb Microbiology Reports for the Last 24 Hours: Microbiology 01/24/18 13:10 Synovial Fluid - Left Gram Stain - Final 01/24/18 13:10 Synovial Fluid - Left Body Fluid Culture - Preliminary Gram Positive Cocci 01/24/18 Unknown Knee,Left - Final Not Reportable 01/24/18 Unknown Knee,Left - Final Not Reportable 01/24/18 Unknown Knee,Left - Final Not Reportable 01/24/18 Unknown Knee,Left - Final Not Reportable 01/24/18 Unknown Knee,Left - Final Not Reportable 01/24/18 22:30 Knee,Left - Wound Gram Stain - Final - Constitutional no acute distress Comments: Alert and oriented is sitting up in the bed completing his breakfast - *Routine Respiratory Exam Present: CTA bilaterally (Anteriorly and posteriorly; no wheezing.) - *Routine Cardiovascular Exam Present: RRR - *Routine Abdominal Exam Present: soft, normoactive bowel sounds. Absent: tenderness, distended - *Routine Extremities Exam Absent: edema Comments: Left leg wrapped from toes to hip. Dressing is clean and dry. - *Routine Neurological Exam Present: alert, oriented X3 Assessment and Plan (1) Left knee pain Current visit: Yes Status: Acute Category: Medical Code(s): M25.562 - Pain in left knee (2) Elevated d-dimer Current visit: Yes Status: Acute Category: Medical Code(s): R79.89 - Other specified abnormal findings of blood chemistry (3) Hypertension Current visit: Yes Status: Chronic Category: Medical Code(s): I10 - Essential (primary) hypertension (4) Lymphedema of left leg Current visit: Yes Status: Chronic Category: Medical Code(s): I89.0 - Lymphedema, not elsewhere classified (5) Septic arthritis of knee, left Current visit: Yes Status: Acute Category: Medical Code(s): M00.9 - Pyogenic arthritis, unspecified (6) S/P left knee arthroscopy Problem details: With irrigation Current visit: Yes Status: Acute Category: Surgical Code(s): Z98.890 - Other specified postprocedural states - Assessment and plan all Dx Assessment and Plan for all problems:: Patient is on cefazolin IV. Cultures are pending. Further per orthopedic surgeon and Dr. Serrano <Koby Serrano - Last Filed: 01/25/18 08:45> Exam Vital signs and Labs for Last 24 Hours: Temp Pulse Resp BP Pulse Ox 97.8 F 92 H 24 124/68 97 01/25/18 08:02 01/25/18 08:02 01/25/18 08:02 01/25/18 08:02 01/25/18 08:02 Laboratory Results - last 24 hr 01/24/18 15:00: ESR 38 H 01/24/18 15:00: C-Reactive Protein 15.5 H I & O for Last 24 hours: Intake & Output 01/22/18 01/23/18 01/24/18 01/25/18 11:59 11:59 11:59 11:59 Intake Total 400 / 400 1000 / 1000 Output Total 220 / 220 900 / 900 Balance 180 / 180 100 / 100 Weight 189 lb 189 lb Microbiology Reports for the Last 24 Hours: Microbiology 01/24/18 13:10 Synovial Fluid - Left Gram Stain - Final 01/24/18 13:10 Synovial Fluid - Left Body Fluid Culture - Preliminary Gram Positive Cocci 01/24/18 Unknown Knee,Left - Final Not Reportable 01/24/18 Unknown Knee,Left - Final Not Reportable 01/24/18 Unknown Knee,Left - Final Not Reportable 01/24/18 Unknown Knee,Left - Final Not Reportable 01/24/18 Unknown Knee,Left - Final Not Reportable 01/24/18 22:30 Knee,Left - Wound Gram Stain - Final Assessment and Plan (1) Septic arthritis of knee, left Current visit: Yes Status: Acute Category: Medical Code(s): M00.9 - Pyog enic arthritis, unspecified (2) Left knee pain Current visit: Yes Status: Acute Category: Medical Code(s): M25.562 - Pain in left knee (3) Elevated d-dimer Current visit: Yes Status: Acute Category: Medical Code(s): R79.89 - Other specified abnormal findings of blood chemistry (4) Hypertension Current visit: Yes Status: Chronic Category: Medical Code(s): I10 - Essential (primary) hypertension (5) Lymphedema of left leg Current visit: Yes Status: Chronic Category: Medical Code(s): I89.0 - Lymphedema, not elsewhere classified (6) S/P left knee arthroscopy Problem details: With irrigation Current visit: Yes Status: Acute Category: Surgical Code(s): Z98.890 - Other specified postprocedural states - Assessment and plan all Dx Assessment and Plan for all problems:: Saw patient, he is anxious to go home but 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
--- NOTE | 2018-01-25 13:20 | Progress Note ---
Subjective Date: 01/25/18 Time: 12:30 Principal diagnosis: L knee septic arthritis Interval history: arthroscopic irrigation performed last night for L knee septic arthritis. patient remains afebrile, vitals stable. reports minimal pain this morning, has ambulated to the bathroom. the patient did remove his surgical dressings on his own, but the incisions have been covered by bandaids. PN: Obj Ex Vital signs: Temp Pulse Resp BP Pulse Ox 97.8 F 92 H 18 124/68 97 01/25/18 08:02 01/25/18 08:02 01/25/18 09:15 01/25/18 08:02 01/25/18 08:02 Narrative: AAOx3, NAD L knee surgical dressings have been removed by patient arthroscopic incisions x2 covered by bandaids no erythema of knee, minimal warmth persistent swelling of L knee, which is baseline for the patient mild lymphedema LLE AROM L knee 10-90, but reports no pain no calf tenderness +DF/PF/EHL SILT distally in all distributions Progress Note: A&P (1) Septic arthritis of knee, left Status: Acute Current Visit: Yes (2) Lymphedema of left leg Status: Chronic Current Visit: Yes Assessment and Plan for All Diagnoses:: 57 year-old male POD #1 s/p arthroscopic irrigation of L knee for septic arthritis -- WBAT, activity as tolerated -- keep incisions clean and dry, counseled patient on importance of hygiene and wound care; no submerging in water but showers ok starting tomorrow -- elevate LLE frequently, ok to wear compression garment for lymphedema if worn at baseline -- awaiting culture/sensitivities; patient would like to go home, which was discussed with Dr. Serrano. plan is for IV daptomycin once daily until final cultures available, then will tailor if needed and PICC line will be placed if needed. -- f/u with me in 1 week for re-examination and suture removal -- f/u with Dr. Serrano as scheduled
--- NOTE | 2018-01-25 21:57 | Discharge Summary ---
General - General Admission date:: 01/23/18 Discharge date: 01/25/18 HPI HPI: Mr. Soto is a 57-year-old male with a history of hypertension and left leg lymphedema who presented to [facility] yesterday with worsening left knee pain. He states for the last 2 days he has been unable to walk and bear weight on that knee He has had no previous injuries and activity has been as usual. In the emergency room with evaluation he was given Dilaudid and Phenergan and was started on Lovenox. His D-dimer was noted to be 3830 and white blood cell count was elevated at 17,000. Venous Doppler studies of the left leg were completed early this a.m. and was negative for SVT and DVT. Patient states that he still really hurts. He has required as needed pain medicine. Hospital Course Hospital Course: Ortho aspirated purulent fluid from the knee and performed an intra-articular corticosteroid injection. The patient was made NPO in anticipation of surgical washout. He had a left knee arthroscopic irrigation of the left knee for septic arthritis by Dr. Jayleen Simental. The patient felt better after the procedure. He had less pain in the left knee. He was able to ambulate to the bathroom. He was on cefazolin IV. The patient did remove his surgical dressings on his own, but the incisions were covered by bandaids. Ortho felt he could be weight bearing as tolerated. He will need to keep the incisions clean and dry. He wanted to go home. His cultures are still pending. The plan was to start him on IV daptomycin once daily until final cultures are available. He will need to f/u with ortho as well as Dr. Serrano. Objective Vital signs: Temp Pulse Resp BP Pulse Ox 98.2 F 96 H 18 128/79 97 01/25/18 15:38 01/25/18 15:38 01/25/18 15:38 01/25/18 15:38 01/25/18 15:38 Narrative: - Constitutional no acute distress - *Routine HEENT Exam Head: Present: normocephalic, atraumatic Eye: Present: PERRL. Absent: conjunctival icterus, scleral injection ENT: Present: mucous membranes moist, oropharynx clear - *Routine Neck Exam Present: supple. Absent: carotid bruit, lymphadenopathy, thyromegaly - *Routine Respiratory Exam Present: CTA bilaterally (Anteriorly and posteriorly) - *Routine Cardiovascular Exam Present: RRR - *Routine Abdominal Exam Present: soft, normoactive bowel sounds. Absent: tenderness - *Routine Extremities Exam Present: edema (Left leg and around the left knee), tenderness (Left knee). Absent: full ROM (Cannot flex at the knee or lift the left leg) - *Routine Neurological Exam Present: alert, oriented X3 Results Labs on day of discharge: Preliminary micro results at discharge 01/24/18 13:10 Body Fluid Culture - Preliminary Synovial Fluid - Left Gram Positive Cocci DS: Diagnosis - Discharge Diagnosis (1) Septic arthritis of knee, left Status: Acute (2) Lymphedema of left leg Status: Chronic Discharge Plan - Patient Discharge Instructions ACTIVITY: Continue current activity, Ambulate as tolerated DIET: continue same diet Patient Instructions: Septic Arthritis, Surgical Site Infection, DI for Incision and Drainage of a Joint - Follow up Plan Follow up with: Koby Serrano MD [Staff Physician] - 01/27/18 Jayleen Simental MD [Staff Physician] - 1 week Disposition: Home, Self-Long-Term Medications: Home Medications Medication Instructions Recorded Confirmed Type Furosemide [Furosemide 40MG tAB] 40 mg PO DAILY 07/31/17 01/23/18 History Lisinopril [Lisinopril 20mg Tab] 20 mg PO DAILY 07/31/17 01/23/18 History Loratadine [Claritin 10mg Tablet] 10 mg PO DAILY 07/31/17 01/23/18 History Potassium Chloride [Pot Chlor 10 10 meq PO BID 07/31/17 01/23/18 History mEq Tab] Lisinopril/Hydrochlorothiazide 1 tab PO DAILY 01/23/18 01/23/18 History [Zestoretic 20-12.5 mg Tablet] Aspirin [Aspirin 81mg chewable 81 mg PO DAILY 01/24/18 01/24/18 History tab] Fluticasone/Salmeterol [Advair 1 puff INHALATION BID 01/24/18 01/24/18 History 100/50mcg diskus] Metoprolol Succinate 100 mg PO DAILY 01/24/18 01/24/18 History Nabumetone 1,500 mg PO DAILY 01/24/18 01/24/18 History Prescriptions/Medication Reconciliation: New DAPTOmycin [Cubicin 500mg vial] 450 mg IV DAILY 28 Days vial Continue Potassium Chloride [Pot Chlor 10 mEq Tab] 10 meq PO BID Loratadine [Claritin 10mg Tablet] 10 mg PO DAILY Lisinopril [Lisinopril 20mg Tab] 20 mg PO DAILY Furosemide [Furosemide 40MG tAB] 40 mg PO DAILY Lisinopril/Hydrochlorothiazide [Zestoretic 20-12.5 mg Tablet] 1 tab PO DAILY Metoprolol Succinate 100 mg PO DAILY Aspirin [Aspirin 81mg chewable tab] 81 mg PO DAILY Nabumetone 1,500 mg PO DAILY Fluticasone/Salmeterol [Advair 100/50mcg diskus] 1 puff INHALATION BID
== END 2018-01-25 16:23 | disposition home or self-care (01) ==
LOC: ER 16:31 → ICU 16:31 → OBSVTOIN 22:30 → ICU 22:34 → 2ND 01-24 18:15
PROVIDERS: ADMIT Family Medicine; ATTEND Family Medicine

== ENCOUNTER 2018-05-12 16:00 | Outpatient (RCR) | payer MEDICARE, SELFPAY | END 2018-05-12 16:05 | disposition home or self-care (01) | LOC: PT 16:00 | PROVIDERS: Visit Provider Internal Medicine Infectious Disease | DX: I89.0 Lymphedema, not elsewhere classified (principal) | CPT/HCPCS: 97110; 97140; 97163; 97164 ==

== ENCOUNTER → 2018-06-02 14:19 | Outpatient (CLI) | payer MEDICARE, SELFPAY ==
--- NOTE | 2018-06-02 14:24 | XR_ITS ---
XR knee LT 3V HISTORY: ITS.REASON: MRSA INFECTION ORDERING PHYSICIAN: CHAR Gray PATIENT AGE: 57 years COMPARISON: None FINDINGS: No fracture or dislocation. No lytic or blastic change. Normal mineralization. No significant arthritic changes evident. No other significant findings. No bony erosive process evident. There are minimal osteoarthritic changes of the medial compartment IMPRESSION: No acute finding
[2018-06-02 15:23] LABS: Basophils # 0.1 K/mm3 (0-0.2); Basophils % 1.7 % (0.1-2.0); Eosinophils # 0.3 K/mm3 (0.0-0.4); Eosinophils % 5.6 % (0.1-12.0); Hematocrit 39.6 % (42.0-52.0); Lymphocytes # 1.8 K/mm3 (0.7-4.5); Lymphocytes % 33.8 % (10-50); Mean Corpuscular HGB Conc 32.8 g/dL (31.8-35.4); Mean Corpuscular Hemoglobin 33.1 pg (27.0-31.2); Mean Corpuscular Volume 100.7 fl (80-94); Mean Platelet Volume 7.4 fl (7.4-10.4); Monocytes # 0.7 K/mm3 (0.1-1.0); Monocytes % 13.3 % (1.7-9.3); Neutrophils # 2.5 K/mm3 (1.8-7.8); Neutrophils % 45.7 % (37.0-80.0); Platelet Count 176 K/mm3 (142-424); Red Blood Count 3.94 M/mm3 (4.60-6.20); Red Cell Distribution Width 13.6 % (11.5-17.5); White Blood Count 5.4 K/mm3 (4.8-10.8)
[2018-06-02 16:22] LABS: Erythrocyte Sedimentation Rate 20 mm/hr (0-20)
[2018-06-02 19:16] LABS: Alanine Aminotransferase 21 U/L (12-78); Albumin Level 2.6 gm/dL (3.4-5.0); Albumin/Globulin Ratio 0.6 (1.1-1.8); Alkaline Phosphatase 111 U/L (46-116); Anion Gap 12.6 mEq/L (5-15); Aspartate Amino Transferase 74 U/L (15-37); Bilirubin,Total 0.8 mg/dL (0.2-1.0); Blood Urea Nitrogen 13 mg/dL (7-18); Calcium 8.2 mg/dL (8.5-10.1); Carbon Dioxide 26 mmol/L (21.0-32.0); Chloride 107 mmol/L (98-107); Estimated Glomerular Filt Rate 100 ml/min (>60); GFR (African American) 121 ML/MIN (>60); Globulin 4.1 gm/dl (1.3-3.2); Glucose 89 mg/dL (74-106); Potassium 3.6 mmoL/L (3.5-5.1); Sodium 142 mmol/L (136-145); Total Protein,Serum 6.7 gm/dL (6.4-8.2)
== END ==
PROVIDERS: PCP Family Medicine; Visit Provider Physician Assistant
DX: Z86.14 Personal history of Methicillin resistant Staphylococcus aureus infection (principal); M25.562 Pain in left knee
CPT/HCPCS: 36415; 73562; 80053; 85025; 85651; 87040

== ENCOUNTER 2018-06-30 15:00 | Outpatient (RCR) | payer MEDICARE, SELFPAY | END 2018-06-30 15:05 | disposition home or self-care (01) | LOC: PT 15:00 | PROVIDERS: Visit Provider Internal Medicine Infectious Disease | DX: I89.0 Lymphedema, not elsewhere classified (principal); D72.829 Elevated white blood cell count, unspecified; D69.59 Other secondary thrombocytopenia; M54.5 Low back pain | CPT/HCPCS: 97140; 97162 ==